=== PATIENT | female | born 1985 | race Caucasian/White ===

== ENCOUNTER 2020-09-10 01:47 | Outpatient (CLI) | payer OTHER, SELFPAY ==
[2020-09-10 20:08] LABS: SARS-CoV-2 RNA PCR Negative
== END 2020-09-10 01:48 | disposition home or self-care (01) ==
LOC: ANHCOVIDDT 01:47
PROVIDERS: PCP Internal Medicine; Visit Provider Obstetrics & Gynecology
DX: Z01.818 Encounter for other preprocedural examination (principal); Z20.822 Contact with and (suspected) exposure to COVID-19
CPT/HCPCS: C9803; U0003

== ENCOUNTER 2020-09-14 01:30 | Day surgery (SDC) | payer OTHER, SELFPAY ==
[2020-09-05 15:22] VITALS: BMI 24.4
--- NOTE | 2020-09-13 10:27 | WPDANESEPPF ---
Anes - Initial Pre Proc Eval Procedure: Operation Date: 09/14/20 14:30 Proposed Procedures p Hysteroscopy Dilation and Curettage With Farida Ablation - David Sommer MD s Laparoscopic Bilateral Tubal Ligation With Fallopian Rings - David Sommer MD Date/Time: 09/13/20 10:27 Surgeon: David Sommer MD Pre Op Diagnosis: Desires Steriliztion,Irregular Heavy Bleeding Patient Data Age: 35 Gender: F Height: 1.6 m Weight: 62.6 kg Allergies Allergy/AdvReac Type Severity Reaction Status Date / Time No Known Allergies Allergy Unverified 09/14/20 12:29 Home Medications Medication Instructions Recorded Confirmed Type cetirizine [Zyrtec] 10 mg PO DAILY 09/05/20 09/14/20 History citalopram [Celexa] 40 mg PO DAILY 09/05/20 09/14/20 History norgestimate-ethinyl estradiol 1 tablet PO QAM 09/05/20 09/14/20 History [Tri-Sprintec (28)] omeprazole magnesium [Prilosec OTC] 20 mg PO DAILY 09/05/20 09/14/20 History topiramate See Rx Instructions .ROUTE .COMPLEX 09/05/20 09/14/20 History zolpidem 10 mg PO HS 09/05/20 09/14/20 History Patient hx anesthesia problems: none Family hx anesthesia problems: none [facility] Past Medical History Medical History Anxiety GERD (gastroesophageal reflux disease) Migraine Social History Social History Smoking status: Never smoker Alcohol intake: current Drinks per week: 7 Living arrangements: with family Spiritual care concerns: No Anes - Eval Final PreProcedure Day of Procedure 09/13/20 10:27 Patient weight: overweight Heart: regular rate and rhythm Lungs: clear to auscultation and normal air movement Airway: Mallampati scale class II Neurological: alert and oriented Last oral intake: >/= 8 hours ASA classification: III Emergent: no Anesthetic plan: proceed Anesthesia type and monitoring: general ETT and standard monitoring Informed Consent: The patient's anesthetic plan and its attendant risks and benefits were discussed with the patient/family/POA. Questions were solicited and answers provided to the satisfaction of the patient/family/POA.
[2020-09-14] VITALS (9 sets, daily range): BP systolic 102–129; BP diastolic 67–82; PULSE 70–87; RESP 12–20; TEMP 36.4–36.6; O2SAT 100
--- NOTE | 2020-09-14 12:04 | PM.IMHP ---
H&P: HPI History of Present Illness Date/Time: 09/14/20 12:04 Chief Complaint: Heavy periods Narrative: 35 y/o with heavy, painful, irregular menses. She has been managing this with continuous use of a combined oral contraceptive. However, she his having headaches which require Relpax. Moreover, she is interested in permanent contraception. She desires surgical management of her problems. Review of Systems Review of Systems: All systems reviewed & are unremarkable except as noted in HPI and below PMFSH Past Medical History Medical History Anxiety GERD (gastroesophageal reflux disease) Migraine Social History Social History Smoking status: Never smoker Alcohol intake: current Drinks per week: 7 Living arrangements: with family Spiritual care concerns: No Meds Home Medications and Allergies Home Medications Medication Instructions Recorded Confirmed Type cetirizine [Zyrtec] 10 mg PO DAILY 09/05/20 09/05/20 History citalopram [Celexa] 40 mg PO DAILY 09/05/20 09/05/20 History norgestimate-ethinyl estradiol 1 tablet PO QAM 09/05/20 09/05/20 History [Tri-Sprintec (28)] omeprazole magnesium [Prilosec OTC] 20 mg PO DAILY 09/05/20 09/05/20 History topiramate See Rx Instructions .ROUTE .COMPLEX 09/05/20 09/05/20 History zolpidem 10 mg PO HS 09/05/20 09/05/20 History Allergies Allergy/AdvReac Type Severity Reaction Status Date / Time No Known Allergies Allergy Unverified 09/05/20 15:01 Exam Const: Orientation/consciousness: patient oriented x3 Other: Well-developed, well-nourished female in no acute distress. Neck: Thyroid: thyroid normal Lymphatic: no lymphadenopathy noted (in neck, axilla or inguinal nodes) Resp: Effort & Inspection: normal respiratory effort Auscultation: clear to auscultation bilaterally Cardio: Rate: regular rate Rhythm: regular rhythm Heart sounds: S1 normal heart sound present and S2 normal heart sound present GI: Other: ABD: Soft, nontender, nondistended. No guarding or rebound tenderness. No hepatosplenomegaly. : General: Yes no CVA tenderness Other: External genitalia: normal female hair distribution, without lesion. Urethral meatus: no lesion, non prolapsed. Bladder: no mass, nontender Vagina: well-estrogenized, without lesion or discharge. No cystocele or rectocele. Cervix: no lesion or discharge. Uterus: small, anteverted, freely mobile, nontender Adnexa: no mass or tenderness. Anus/perineum: no lesions, nontender Back/Spine/Pelvis: Back: no CVA tenderness Skin: General skin exam: normal color and no rashes or lesions noted Neuro: General: patient oriented x3 Extrem: Other: Extremities: nontender with no edema Psych: Mental Status: mental status grossly normal Affect: normal affect Assessment and Plan Assessment and plan (1) Menometrorrhagia: Code(s): N92.1 - Excessive and frequent menstruation with irregular cycle Status: Acute Assessment and Plan: She understands there are temporary methods of contraception available to her. She understands that there are nonsurgical options as well as surgical options. She understands that tubal ligation will render her permanently sterile. She understands that there is a failure rate associated with tubal ligation, as well as an inherent ectopic gestation risk. Furthermore, she understands risks of surgery to include risks of anesthesia, risks of pain, infection, bleeding, blood products, thromboembolic phenomena and damage to adjacent structures such as bowel, bladder, ureters, blood vessels and nerves. She understands all these risks and elects to proceed with surgery. She has received the [employer] pamphlet on surgical sterilization. She will be consented for laparoscopic bilateral tubal ligation, hysteroscopy, dilation and sharp curettage, and endometrial ablation. (2)
[2020-09-14] MEDS: ACETAMINOPHEN 500 MG TABLET 1000 MG PO (12:56)
[2020-09-14] MEDS: LACTATED RINGERS 1,000 ML 30 ML IV CONT ×2 (12:57→15:51)
[2020-09-14] MEDS: KETOROLAC 15 MG/ML VIAL (*BKC) IV PUSH (12:58)
--- NOTE | 2020-09-14 13:09 | WPDHPUPDATE1 ---
History and Physical Update Update Date/Time: 09/14/20 13:09 History and Physical has been reviewed, including an updated exam of the patient. There are NO changes in the patient's condition. Risks, benefits, and alternatives have been discussed and questions answered. Patient agrees to proceed with procedure.
[2020-09-14] MEDS: LIDOCAINE HCL 1% LOCAL INJ 10 ML VIAL INFILTRATE (14:49)
--- NOTE | 2020-09-14 15:04 | PM.PROC ---
Procedure Note - Detailed Date of procedure: 09/14/20 Pre-op diagnosis: Desires Steriliztion,Irregular Heavy Bleeding Menometrorrhagia Dysmenorrhea Desired sterility Post-op diagnosis: same Procedure performed: Laparoscopic bilateral tubal ligation with Falope rings Hysteroscopy Dilation and sharp curettage Endometrial ablation Description of procedure: The patient was taken to the operating room where general endotracheal anesthesia was administered. She was prepared and draped in the usual sterile fashion in dorsal lithotomy position. The bladder was drained with a red rubber catheter. A sterile speculum was placed into the vagina. The anterior lip of the cervix was grasped with a single-tooth tenaculum. The acorn uterine manipulator was placed. The speculum was withdrawn. Gloves were changed and attention was turned the abdomen. An infraumbilical skin incision was made with a scalpel. The abdomen was tented and a 5mm bladeless trocar was advanced under direct laparoscopic visualization. Pneumoperitoneum was administered using carbon dioxide gas. A survey of the pelvis and abdomen revealed the findings noted above. A second skin incision was made in the midline above the symphysis pubis and an 8mm bladeless trocar was advanced under direct laparoscopic visualization. The fallopian tube on the right side was followed out to the fimbriated end for identification. It was then grasped in the midportion with the Falope ring applicator. The Falope ring was tented applied. A good loop of tube was noted to be distal to the ring. Hemostasis was excellent. The device was reloaded and the contralateral tube was similarly identified and ligated. An excellent application was noted here as well. A total of 3mL of 1% lidocaine was infiltrated into the serosa of the proximal tubes for postoperative anesthesia. The ports were withdrawn. The gas was allowed to escape. The skin incisions were reapproximated using interrupted subcuticular sutures of 4 0 Vicryl. Dermaflex was applied externally. Attention was redirected to the vagina where the acorn manipulator was withdrawn. Ten mL of 1% lidocaine was administered in a paracervical block. The cervix was then gently dilated using Hegar dilators until an 8 mm dilator could be passed. Hysteroscopy was performed using sterile saline as a distention medium. Findings are as noted above. Sharp curettage was then performed, and endometrial curettings were collected on a Telfa pad and passed off to be sent to pathology. Finally, the the Farida device was advanced and endometrial ablation commenced without difficulty. The device was withdrawn and a second look was taken using the hysteroscope. Excellent coverage of the endometrial cavity was noted. The tenaculum was removed. Hemostasis was excellent. Sponge, lap, needle and instrument counts were correct. The patient was awakened and taken to the recovery room in stable condition. I was present and scrubbed through the entire procedure. Implants: Falope rings Anesthesia: GETA and local (1% lidocaine) Surgeon: David Sommer MD Estimated blood loss (mL): 5 Drains: No Packing: No Pathology: yes (Endometrial curettings) Complications: None Condition: stable Disposition: PACU Findings: Normal-appearing right upper quadrant anatomy. Vermiform appendix not seen. Normal-appearing uterus, anterior and posterior cul de sac, bilateral round ligaments, bilateral uterosacral ligaments, bilateral tubes and ovaries.
[2020-09-14] MEDS: fentaNYL CITRATE INJ (*CRX) 100 MCG/2 ML VIAL 25 MCG IV PUSH ×4 (15:35→16:03)
[2020-09-14] MEDS: oxyCODONE HCL (*CRX) 5 MG TAB IR PO (16:27)
== END 2020-09-14 17:12 | disposition home or self-care (01) ==
PROVIDERS: PCP Internal Medicine; Visit Provider Obstetrics & Gynecology
PROC: 0U5B8ZZ Destruction of Endometrium, Via Natural or Artificial Opening Endoscopic (ICD-10-PCS; CPT 58563; principal; 2020-09-14 14:30)
PROC: (CPT 58671; 2020-09-14 14:30)
DX: Z30.2 Encounter for sterilization (principal); N92.1 Excessive and frequent menstruation with irregular cycle; N94.6 Dysmenorrhea, unspecified; K21.9 Gastro-esophageal reflux disease without esophagitis; F41.9 Anxiety disorder, unspecified
CPT/HCPCS: 58563; 58671; 88305; A4264; A9270; J1885; J2250; J2405; J2704; J3010; J7030; J7120

== ENCOUNTER 2025-06-21 09:06 | Outpatient (CLI) | payer BC, SELFPAY ==
--- NOTE | ~2025-06-21 | XR_ITS ---
[id number] Indication: radiculopathy, cervical region Comparison: None Findings: The vertebral heights are intact. No fracture or subluxation. The disc heights are intact. Soft tissues unremarkable Impression: No acute abnormality. Reviewed, dictated and finalized at location P. Impression: No acute abnormality.
== END 2025-06-21 09:07 | disposition home or self-care (01) ==
PROVIDERS: PCP Internal Medicine; Visit Provider Psychiatry & Neurology Neurology
DX: M54.12 Radiculopathy, cervical region (principal)
CPT/HCPCS: 72040

== ENCOUNTER 2025-07-20 07:28 | Outpatient (CLI) | payer BC, SELFPAY ==
--- NOTE | ~2025-07-20 | MR_ITS ---
EXAMINATION: MR cervical spine wo con DATE: 07/20/2025 07:55 INDICATION: Neck pain TECHNIQUE: Magnetic resonance imaging (MRI) of the cervical spine was performed without intravenous contrast. Sequences included sagittal T2-weighted FSE, sagittal T2-weighted FS FSE, sagittal T1-weighted FSE, axial MERGE, and axial T2-weighted FSE. COMPARISON: None FINDINGS: Degenerative changes are developing in the disc spaces, uncovertebral joints and pedicles. Benign hemangiomatous appearing changes in the C7 vertebral body. Straightening of the cervical spine incidentally noted. No acute or aggressive bony or soft tissue process seen. The spinal cord within the cervical spine is normal in signal and morphology with no discrete medullary cord lesions or gross myelopathic changes. Visualized portions of the posterior fossa appear within normal limits. Level specific findings as follows: C2-3: Mild degenerative change C3-4: Mild degenerative change C4-5: Mild degenerative change C5-6: Mild degenerative change C6-7: Mild degenerative change C7-T1: Mild degenerative change. IMPRESSION: No spinal canal stenosis or discrete disc protrusion. Mild multilevel degenerative changes present. Straightening of the cervical spine may be associated with pain or spasm. Reviewed, dictated and finalized at location A. [employer] IMPRESSION: No spinal canal stenosis or discrete disc protrusion. Mild multilev el degenerative changes present. Straightening of the cervical spine may be ass ociated with pain or spasm.
== END 2025-07-20 07:29 | disposition home or self-care (01) ==
PROVIDERS: PCP Internal Medicine; Visit Provider Psychiatry & Neurology Neurology
DX: M54.12 Radiculopathy, cervical region (principal); M50.30 Other cervical disc degeneration, unspecified cervical region
CPT/HCPCS: 72141